=== PATIENT | female | born 1980 | race Asian ===

== ENCOUNTER 2020-07-13 10:19 | Outpatient (CLI) | payer OTHER | END 2020-07-13 22:00 | disposition home or self-care (01) | LOC: INF 10:19 | PROVIDERS: ATTEND Internal Medicine | DX: Z23 Encounter for immunization (principal) | CPT/HCPCS: 96372 ==

== ENCOUNTER 2020-08-04 13:04 | Outpatient (CLI) | payer OTHER | END 2020-08-04 21:59 | disposition home or self-care (01) | LOC: INF 13:04 | PROVIDERS: ATTEND Internal Medicine | DX: Z23 Encounter for immunization (principal) | CPT/HCPCS: 96372 ==